=== PATIENT | female | born 1985 | race Caucasian/White ===

== ENCOUNTER 2017-08-16 18:42 | Emergency (ER) | payer SELFPAY ==
--- NOTE | 2017-08-16 19:18 | NUR ---
PATIENT LEFT WITHOUT BEING SEEN BY DR. SUMNER. NO FURTHER CARE PROVIDED FOR PATIENT.
== END 2017-08-16 19:10 | disposition left against medical advice (07) ==
LOC: MED 18:42
DX: R51 Headache (principal); Z53.21 Procedure and treatment not carried out due to patient leaving prior to being seen by health care provider

== ENCOUNTER 2022-02-08 10:20 | Emergency (ER) | payer SELFPAY ==
[~2022-02-08] VITALS: Ht 149.4 cm; Wt 62.3 kg
[2022-02-08 10:24] VITALS: BP 137/99
--- NOTE | 2022-02-08 10:32 | NUR ---
PATIENT AMBULATED TO BED 9.
[2022-02-08] MEDS ORDERED: ACETAMINOPHEN 325 MG TAB PO ONE (10:45)
[2022-02-08] MEDS ORDERED: KETOROLAC 30 MG/ML VIAL IM ONE (10:45)
--- NOTE | 2022-02-08 10:45 | NUR ---
36 y/o female bib daughter, c/o lower abd pain, cramping with vaginal bleeding and elena since 01/26/22. pt states her last deposhot was 12/20/21 with no clotting in vaginal bleeding. abd sounds x4, normoactive, flat/soft/nontender. a&ox4 filipino speaking, ambulates with even and steady gait. skin pink/warm/intact/dry. pt denies dysuria, hematuria, urinary frequency or retention, or anyone sick in the household with the same symptoms. pt denies any fever, cp, sob, or cough at this time. pt states pain is 8/10 at this time. patient positioned for comfort. hob elevated. bed down. ermd made aware of pt. pmh: denies nka med: tylenol last night with no relief
[2022-02-08 11:06] LABS: APPEARANCE,URINE CLEAR (CLEAR); BILIRUBIN,URINE NEGATIVE (NEGATIVE); BLOOD, URINE 2+ (NEGATIVE); COLOR,URINE YELLOW (YELLOW); LEUKOCYTE ESTERASE ,URINE TRACE (NEGATIVE); NITRITE, URINE NEGATIVE (NEGATIVE); UGLUCOSE NEGATIVE (NEGATIVE)
[2022-02-08 11:09] LABS: BASOPHILS % (AUTO) 0.3 % (0.0-2.0); EOSINOPHILS # (AUTO) 0.5 K/uL (0-0.4); HEMATOCRIT 38.8 % (36-48); HEMOGLOBIN 12.9 g/dL (12.0-16.0); LYMPHOCYTES # (AUTO) 1.9 K/uL (2.5-16.5); LYMPHOCYTES % (AUTO) 31.9 % (20.5-51.1); MEAN CORPUSCULAR HEMOGLOBIN 30 pg (27-31); MEAN CORPUSCULAR HGB CONC 33 g/dL (33-37); MEAN CORPUSCULAR VOLUME 89.4 fL (80-94); MONOCYTES # (AUTO) 0.4 K/uL (0.8-1.0); MONOCYTES % (AUTO) 5.9 % (1.7-9.3); NEUTROPHILS # (AUTO) 3.1 K/uL (1.8-7.7); NEUTROPHILS % (AUTO) 52.9 % (42.2-75.2); PLATELET COUNT (AUTO) 243 K/uL (140-450); RED BLOOD CELL COUNT(AUTO) 4.34 MIL/uL (4.20-5.40); RED CELL DISTRIBUTION WIDTH 13.1 % (11.6-13.7); WHITE BLOOD COUNT (AUTO) 5.9 K/uL (4.8-10.8)
--- NOTE | 2022-02-08 11:16 | NUR ---
pt taken to ct at this time via wheelchair
[2022-02-08 11:21] LABS: ANION GAP 8.4 (8-16); CARBON DIOXIDE 25.4 mmol/L (21-32); CREATININE 0.7 mg/dL (0.6-1.3); POTASSIUM 3.8 mmol/L (3.5-5.1)
[2022-02-08 11:23] LABS: OTHER CASTS, URINE None Seen /LPF (None Seen); WBC,URINE 0-5 /HPF (0-5)
[2022-02-08] MEDS ORDERED: NAPR-54 PO (11:54)
[2022-02-08] MEDS ORDERED: HYDROcodone/APAP 5/325 MG 1 TAB TAB PO ONE (12:00)
--- NOTE | 2022-02-08 12:00 | NUR ---
Patient discharged with v/s stable. Written and verbal after care instructions given and explained. Patient alert, oriented and verbalized understanding of instructions. Ambulatory with daughter to car. All questions addressed prior to discharge. ID band removed. Patient advised to follow up with PMD. Rx of naproxen (sent) given. Patient educated on indication of medication including possible reaction and side effects. Opportunity to ask questions provided and answered. copy of labs and imaging done
[2022-02-08 12:01] VITALS: BP 137/99
--- NOTE | 2022-02-08 12:11 | NUR ---
pt given apple sauce, jello and crackers to help with gi upset with norco.
== END 2022-02-08 12:01 | disposition home or self-care (01) ==
LOC: MED 10:20
DX: G44.209 Tension-type headache, unspecified, not intractable (principal); N92.6 Irregular menstruation, unspecified
CPT/HCPCS: 36415; 70450; 80048; 81001; 81025; 85025; 96372; 99284; J1885